=== PATIENT | female | born 1995 | race Caucasian/White ===

== ENCOUNTER 2019-11-28 07:52 | Inpatient (IN) ==
[2019-11-28] MEDS ORDERED: miSOPROStoL 50 MCG TAB PO ONE (09:06)
[2019-11-28] MEDS ORDERED: OXYTOCIN 30 UNITS/500 ML BAG IV PRN (09:06)
--- NOTE | 2019-11-28 09:06 | Obstetrical Progress Note ---
Date of Service November 28, 2019 Assessment & Plan Admission and Anticipated Discharge Date Admission Date: November 28, 2019 Subjective Met pt and spouse H&p reviewed with pt FHR; CAT1 Ctx; Minimal VE; Ft/thick /post EFW: 7-8 timothy Pascal Bedside sono; Vt Discussed and reviewed induction of labor Agreed to starting Cytotec Results & Data ([facility]) Vital Signs (Past 12 Hours) Vital Signs Temp Pulse Resp BP 11/28/19 08:54 100 H 125/82 11/28/19 08:03 37.0 C 100 H 20 141/85 H
[2019-11-28 09:26] LABS: Hematocrit (blood only) 29.9 % (37-47); Hemoglobin 9.9 g/dL (12.0-16.0); Mean Corpuscular Hemoglobin 28.3 pg (25-34); Mean Corpuscular Volume 85.4 fL (80-100); Mean Platelet Volume 10.4 fL (7.4-10.4); Platelet Count 261 K/uL (130-400); RDW Coefficient of Variation 14.2 % (11.5-14.5); RDW Standard Deviation 43.6 fL (36.4-46.3)
[2019-11-28 09:50] LABS: Mean Corpuscular Hgb Conc 33.1 g/dL (32-36)
[2019-11-28] MEDS ORDERED: DINOPROSTONE 10 MG INSERT PV ONE (19:56)
--- NOTE | 2019-11-28 20:18 | Obstetrical Progress Note ---
Date of Service November 28, 2019 Assessment & Plan Admission and Anticipated Discharge Date Admission Date: November 28, 2019 Subjective Pt doing well Induction for postdates Cytotec placed this AM FHR; CAT1 Ctx; Irregular VE' /-3 Cervidil placed in vagina Results & Data ([facility]) Vital Signs (Past 12 Hours) Vital Signs Temp Pulse Resp BP 11/28/19 18:59 36.9 C 82 20 125/70 11/28/19 14:53 37.1 C 80 20 113/75 11/28/19 11:28 37.0 C 78 20 118/73 11/28/19 08:54 100 H 125/82
--- NOTE | 2019-11-29 08:40 | History & Physical Report ---
Date of Service November 29, 2019 Assessment & Plan (1) Elective induction of labor planned: 24 yo at 40.4 wks IOL since yesterday am VSS Afebrile FHR reassuring GBS negative Cervix still unfavorable Desires to eat breakfast Plan US for EW Discussed options with continue with cervical ripening, PG, Esposito bulb, Pitocin in details (2) Post-term , 40-42 weeks of gestation: History of Present Illness Primary Care Provider: NO PCP Patient is a 24 yo at 40.4 days admitted yesterday by Dr Joseph for IOL Received PO Cytotec and vaginal Cervidil. Feels mild cramps, not painful, 07/05 No LOF/VB +FM Her has been uncomplicated except anemia, unable to take iron due to constipation GBS negative Allergies Allergy/AdvReac Type Severity Reaction Status Date / Time cephalexin [From Keflex] Allergy Rash Verified 11/28/19 08:23 Home Medications Home Medications Medication Instructions Recorded Confirmed Type vit-iron fum-folic ac 1 tab PO DAILY 11/28/19 11/28/19 History [ Vitamin] Patient History Medical History Anemia affecting Blocked tear duct, congenital Hx of Lyme disease Scoliosis Social History Preferred Language: Japanese Communication Ability: Effective 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 Beliefs That Will Affect Care: None marital status: Current Living Situation: Spouse Other Information That Helps Us Care for You: No Feels Safe at Home: Yes Safety Concerns: Feels Safe At This Time Smoking Status: Never smoker Hx Alcohol Use: No 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 NO h/o STD's, no h/o HSV/ Chlamydia/ Gonorrhea Review of Systems All systems reviewed & are unremarkable except as noted in HPI & below Physical Exam Constitutional: WD/WN, vitals as above well developed and well nourished Comfortable, desires breakfast Gastrointestinal (Abdomen): Soft, NT, gravid Genitourinary: normal external appearance OB Exam Abdomen: + irregular c ontractions (q2-4 min) Manual OB Exam: + cervical dilation 1 cm, + cervical effacement 50% and + station -2 OB Exam Monitor Tracing: + category I and + normal FHT variability Results & Data Vital Signs (Past 12 Hours) Vital Signs Temp Pulse Resp BP 11/29/19 06:56 36.9 C 20 11/29/19 05:26 36.6 C 78 16 109/59 L 11/29/19 02:38 36.8 C 75 16 126/81 11/28/19 22:17 36.7 C 76 18 138/64
[2019-11-29] MEDS ORDERED: OXYTOCIN 30 UNITS/500 ML BAG IV PRN (11:56)
--- NOTE | 2019-11-29 11:56 | Obstetrical Progress Note ---
Date of Service November 29, 2019 Assessment & Plan Admission and Anticipated Discharge Date Admission Date: November 28, 2019 Subjective Patient is back from US EFW: 3800 gr, 8 lb 8 oz Discussed EFW, US estimation and false rate ( 10% more or less) , increased risk of shoulder dystocia with larger babies She understands and desires trial of vaginal delivery She feels more ctxs, more intense but still 1/10 in pain scale No LOF/VB +FM Cervix unchanged FHR categ I [place]: ctxs q 4-5 min Discussed mahan bulb and low dose Oxytocin Agrees Results & Data ([facility]) Vital Signs (Past 12 Hours) Vital Signs Temp Pulse Resp BP 11/29/19 10:42 74 129/71 11/29/19 10:41 36.9 C 20 11/29/19 06:56 36.9 C 11/29/19 05:26 36.6 C 78 16 109/59 L 11/29/19 02:38 36.8 C 75 16 126/81
[2019-11-29] MEDS: LACTATED RINGER'S 1,000 ML IV PRN ×2 (12:18→18:05)
--- NOTE | 2019-11-29 12:32 | Ultrasound Report ---
ULTRASOUND LIMITED CLINICAL HISTORY: Amniotic fluid assessment. COMPARISON STUDY: No priors. FINDINGS: Real-time, may scale, and color Doppler sonography of the fetus and gravid uterus is perfo rmed. There is a single live gestation with an estimated heart rate of 149 beats per minute. The plac enta is fundal and normal in appearance. The amniotic fluid index measures 12.08 cm. The largest pock et of fluid measures 5.1 cm. Positioning is cephalic. The femoral length measures 8.17 cm, corresponding to and estimated age of 41 weeks 6 days. Abdominal circumference measures 35.08 cm, corresponding to an estimated age of 39 weeks 0 days. The biparietal diameter measures 9.73 cm, corresponding to an estimated age of 39 weeks 6 days. The head circumference measures 33.65 cm, corresponding to an estimated age of 38 weeks 4 days. Estimated weight is 3850 g +/- 577 g. IMPRESSION: 1. There is a single live intrauterine gestation as detailed above. 2. Note that this does not constitute a dedicated anatomic scan. Electronically signed by: Ede Ruiz M.D. 11/29/2019 12:31 PM
[2019-11-29] MEDS ORDERED: ePHEDrine sulfate 50 MG/ML AMP ONE (17:36)
[2019-11-29] MEDS ORDERED: BUPIVACAINE 0.25% 30 ML VIAL ONE (17:36)
--- NOTE | 2019-11-29 17:36 | Obstetrical Progress Note ---
Date of Service November 29, 2019 Assessment & Plan Admission and Anticipated Discharge Date Admission Date: November 28, 2019 Subjective Patient is reevaluated She feels painful, 8/10 VSS Afebrile FHR categ I [place]: ctxs q 1-3 min, pitocin is at 8 miu/min VE; bulb was in vagina, cervix 5 cm/ 60%/ -2 Plan for epidural for pain' Continue to monitor Results & Data ([facility]) Vital Signs (Past 12 Hours) Vital Signs Temp Pulse Resp BP 11/29/19 15:05 86 124/68 11/29/19 14:57 37 C 18 11/29/19 13:59 81 112/64 11/29/19 13:01 85 20 115/62 11/29/19 12:18 76 111/60 11/29/19 10:42 74 129/71 11/29/19 10:41 36.9 C 20 11/29/19 06:56 36.9 C 20
[2019-11-29] MEDS ORDERED: fentaNYL citrate 100 MCG/2 ML VIAL ONE (17:37)
[2019-11-29] MEDS ORDERED: fentaNYL 2MCG/ML ROPIV 1.25MG/ML 100 ML BAG EPI ONE (17:37)
--- NOTE | 2019-11-29 18:15 | Anesthesiology Consultation ---
Date of Service November 29, 2019 Assessment & Plan Chart Review Chart Review: Acceptable Risk for Labor Epidural Consults Requested none History Height/Weight Height: 5 ft 8 in Weight: 91.626 kg Allergies Allergy/AdvReac Type Severity Reaction Status Date / Time cephalexin [From Keflex] Allergy Rash Verified 11/28/19 08:23 Medications Home Medications Medication Instructions Recorded Confirmed Last Taken vit-iron fum-folic ac 1 tab PO DAILY 11/28/19 11/28/19 11/27/19 20:30 [ Vitamin] Active Medications Generic Name Dose Route Start Last Admin Trade Name Freq PRN Reason Stop Dose Admin Lactated Ringer's 1,000 mls @ 125 mls/hr 11/28/19 09:06 11/29/19 18:05 Lr IV 11/30/19 09:05 125 mls/hr .Q8H PRN Administration L&D Protocol Protocol Oxytocin 30 units in 500 mls @ 8 mls/hr 11/29/19 11:56 11/29/19 16:30 Pitocin IV 12/01/19 11:55 0.48 units/hr .Q24H PRN 8 mls/hr Labor Induction/Augmentation Titration Protocol 0.48 UNITS/HR Past Medical History Medical History Anemia affecting Blocked tear duct, congenital Hx of Lyme disease Scoliosis Social History Smoking Status: Never smoker Hx Alcohol Use: No Hx Substance Use: No Physical Exam Vital Signs Last Vital Signs Temp 37 C 11/29/19 14:57 Pulse 87 11/29/19 18:14 Resp 18 11/29/19 14:57 BP 134/67 11/29/19 18:13 Pulse Ox 98 11/29/19 18:14 Testing Laboratory Results 11/28/19 09:13
[2019-11-29] MEDS ORDERED: DiphenhydrAMINE HCL 50 MG/ML VIAL IV PRN (18:17)
[2019-11-29] MEDS ORDERED: fentaNYL 2MCG/ML ROPIV 1.25MG/ML 100 ML BAG EPI PRN (18:17)
[2019-11-29] MEDS ORDERED: NALOXONE HCL 1 MG in SODIUM CHLORIDE 0.9% 1000ML 1,000 ML IV PRN (18:17)
[2019-11-29] MEDS ORDERED: NALBUPHINE HCL INJ 10 MG/ML AMP IV PRN (18:17)
[2019-11-29] MEDS ORDERED: NALOXONE HCL 0.4 MG/1 ML VIAL/CARP IV PRN (18:17)
[2019-11-29] MEDS ORDERED: ePHEDrine sulfate 50 MG/ML AMP IV PRN (18:17)
--- NOTE | 2019-11-29 19:45 | Obstetrical Progress Note ---
Date of Service November 29, 2019 Assessment & Plan Admission and Anticipated Discharge Date Admission Date: November 28, 2019 Subjective Patient is reevaluated She feels comfortable now VSS Afebrile FHR categ I [place]: ctxs q 2-3 min, pitocin is at 10 miu/min VE; cervix 6 cm/ 80%/ -1, AROM'ed clear Continue to monitor Results & Data ([facility]) Vital Signs (Past 12 Hours) Vital Signs Temp Pulse Resp BP Pulse Ox 11/29/19 19:40 112 H 118/60 91 11/29/19 19:39 92 H 99 11/29/19 19:34 98 H 100 11/29/19 19:31 96 H 128/63 11/29/19 19:29 100 H 98 11/29/19 19:24 100 H 99 11/29/19 19:21 100 H 132/59 L 11/29/19 19:19 97 H 99 11/29/19 19:14 91 H 100 11/29/19 19:10 95 H 129/71 11/29/19 19:09 37.5 C 81 18 99 11/29/19 19:04 88 100 11/29/19 19:01 75 128/68 05 18:59 79 99 11/29/19 18:54 78 100 11/29/19 18:51 75 128/68 11/29/19 18:49 82 99 11/29/19 18:44 80 100 11/29/19 18:42 78 124/70 11/29/19 18:39 79 100 11/29/19 18:34 76 98 05 18:31 79 129/67 05 18:30 20 11/29/19 18:29 79 99 05 18:25 18 11/29/19 18:24 78 100 05 18:20 37.1 C 18 11/29/19 18:19 79 129/63 98 05 18:16 83 135/66 0520 18:14 87 98 0520 18:13 86 134/67 05 18:10 83 126/65 /0520 18:09 86 99 05 18:07 86 128/65 05 18:04 81 134/73 100 11/29/19 17:59 86 100 11/29/19 17:54 95 H 99 11/29/19 17:49 96 H 100 11/29/19 15:05 86 124/68 11/29/19 14:57 37 C 18 11/29/19 13:59 81 112/64 11/29/19 13:01 85 20 115/62 11/29/19 12:18 76 111/60 11/29/19 10:42 74 129/71 11/29/19 10:41 36.9 C 20
[2019-11-29] MEDS ORDERED: Nursing to Pharmacy Communication ONE (20:15)
--- NOTE | 2019-11-29 23:40 | Obstetrical Progress Note ---
Date of Service November 29, 2019 Assessment & Plan Admission and Anticipated Discharge Date Admission Date: November 28, 2019 Subjective Late entry from 2134 Patient felt pressure VE; 8/ 90%/+1, coned head FHR categ I Continue to monitor closely Results & Data ([facility]) Vital Signs (Past 12 Hours) Vital Signs Temp Pulse Resp BP Pulse Ox 11/29/19 23:34 131 H 99 11/29/19 23:31 129 H 134/83 11/29/19 23:29 147 H 100 11/29/19 23:24 152 H 98 11/29/19 23:22 37.5 C 127 H 18 137/92 11/29/19 23:19 132 H 98 11/29/19 23:14 112 H 99 11/29/19 23:10 91 H 136/75 11/29/19 23:09 109 H 98 11/29/19 23:04 105 H 98 11/29/19 23:00 78 129/60 11/29/19 22:59 93 H 98 11/29/19 22:54 122 H 98 11/29/19 22:51 85 132/65 11/29/19 22:50 103 H 139/70 11/29/19 22:49 93 H 97 11/29/19 22:44 116 H 98 11/29/19 22:41 87 127/69 11/29/19 22:39 86 96 11/29/19 22:34 98 H 97 11/29/19 22:31 91 H 136/65 11/29/19 22:29 94 H 98 11/29/19 22:24 102 H 98 11/29/19 22:21 93 H 142/80 H 11/29/19 22:19 86 98 11/29/19 22:14 99 H 97 11/29/19 22:11 81 136/65 11/29/19 22:09 82 97 11/29/19 22:05 37.5 C 18 11/29/19 22:04 105 H 97 11/29/19 22:00 107 H 131/80 11/29/19 21:59 98 H 97 11/29/19 21:54 112 H 98 11/29/19 21:50 102 H 120/72 11/29/19 21:49 100 H 98 11/29/19 21:44 101 H 98 06/05/20 21:41 96 H 129/76 06/05/20 21:39 106 H 98 06/05/20 21:34 103 H 98 06/05/20 21:31 112 H 135/76 06/05/20 21:29 92 H 97 06/05/20 21:24 89 98 06/05/20 21:20 87 112/64 06/05/20 21:19 87 97 06/05/20 21:14 85 98 06/05/20 21:10 90 126/73 06/05/20 21:09 95 H 97 06/05/20 21:04 87 98 06/05/20 21:00 96 H 124/73 06/05/20 20:59 96 H 98 06/05/20 20:54 106 H 97 06/05/20 20:51 101 H 132/90 06/05/20 20:49 92 H 98 06/05/20 20:44 98 H 99 06/05/20 20:41 86 126/70 06/05/20 20:39 93 H 98 06/05/20 20:34 107 H 100 06/05/20 20:31 93 H 142/74 H 06/05/20 20:29 93 H 99 06/05/20 20:24 92 H 99 06/05/20 20:20 88 133/72 06/05/20 20:19 96 H 99 06/05/20 20:14 100 H 100 06/05/20 20:10 88 131/68 06/05/20 20:09 91 H 99 06/05/20 20:04 87 98 06/05/20 20:01 98 H 137/73 06/05/20 19:59 98 H 100 06/05/20 19:54 101 H 99 06/05/20 19:51 90 125/64 06/05/20 19:49 92 H 98 06/05/20 19:44 99 H 99 06/05/20 19:42 37.5 C 06/05/20 19:40 112 H 118/60 91 06/05/20 19:39 92 H 99 06/05/20 19:34 98 H 100 06/05/20 19:31 96 H 128/63 06/05/20 19:29 100 H 98 06/05/20 19:24 100 H 99 06/05/20 19:21 100 H 132/59 L 06/05/20 19:19 97 H 99 06/05/20 19:14 91 H 100 06/05/20 19:10 95 H 129/71 06/05/20 19:09 37.5 C 81 18 99 06/05/20 19:04 88 100 06/05/20 19:01 75 128/68 06/05/20 18:59 79 99 06/05/20 18:54 78 100 06/05/20 18:51 75 128/68 06/05/20 18:49 82 99 06/05/20 18:44 80 100 06/05/20 18:42 78 124/70 06/05/20 18:39 79 100 06/05/20 18:34 76 98 06/05/20 18:31 79 129/67 06/05/20 18:30 20 06/05/20 18:29 79 99 06/05/20 18:25 18 /05/20 18:24 78 100 06/05/20 18:20 37.1 C 18 0520 18:19 79 129/63 98 06/05/20 18:16 83 135/66 06/05/20 18:14 87 98 06/05/20 18:13 86 134/67 06/05/20 18:10 83 126/65 06/05/20 18:09 86 99 06/05/20 18:07 86 128/65 06/05/20 18:04 81 134/73 100 06/05/20 17:59 86 100 06/05/20 17:54 95 H 99 /05/20 17:49 96 H 100 06/05/20 15:05 86 124/68 06/05/20 14:57 37 C 18 /05/20 13:59 81 112/64 06/05/20 13:01 85 20 115/62 06/05/20 12:18 76 111/60
--- NOTE | 2019-11-29 23:41 | Obstetrical Progress Note ---
Date of Service November 29, 2019 Assessment & Plan Admission and Anticipated Discharge Date Admission Date: November 28, 2019 Subjective Patient has been feeling pressure and wanted to push She has been pushing for about 15 minutes, brought head to +2, LELA, small caput FHR with early decels with ctxs and good variability and accels in between Continue with pushing and anticipate Results & Data ([facility]) Vital Signs (Past 12 Hours) Vital Signs Temp Pulse Resp BP Pulse Ox 11/29/19 23:34 131 H 99 11/29/19 23:31 129 H 134/83 11/29/19 23:29 147 H 100 11/29/19 23:24 152 H 98 11/29/19 23:22 37.5 C 127 H 18 137/92 11/29/19 23:19 132 H 98 11/29/19 23:14 112 H 99 11/29/19 23:10 91 H 136/75 11/29/19 23:09 109 H 98 11/29/19 23:04 105 H 98 11/29/19 23:00 78 129/60 11/29/19 22:59 93 H 98 11/29/19 22:54 122 H 98 11/29/19 22:51 85 132/65 11/29/19 22:50 103 H 139/70 11/29/19 22:49 93 H 97 11/29/19 22:44 116 H 98 11/29/19 22:41 87 127/69 11/29/19 22:39 86 96 11/29/19 22:34 98 H 97 11/29/19 22:31 91 H 136/65 11/29/19 22:29 94 H 98 11/29/19 22:24 102 H 98 11/29/19 22:21 93 H 142/80 H 11/29/19 22:19 86 98 11/29/19 22:14 99 H 97 11/29/19 22:11 81 136/65 11/29/19 22:09 82 97 11/29/19 22:05 37.5 C 18 11/29/19 22:04 105 H 97 11/29/19 22:00 107 H 131/80 11/29/19 21:59 98 H 97 11/29/19 21:54 112 H 98 11/29/19 21:50 102 H 120/72 06/05/20 21:49 100 H 98 06/05/20 21:44 101 H 98 06/05/20 21:41 96 H 129/76 06/05/20 21:39 106 H 98 06/05/20 21:34 103 H 98 06/05/20 21:31 112 H 135/76 06/05/20 21:29 92 H 97 06/05/20 21:24 89 98 06/05/20 21:20 87 112/64 06/05/20 21:19 87 97 06/05/20 21:14 85 98 06/05/20 21:10 90 126/73 06/05/20 21:09 95 H 97 06/05/20 21:04 87 98 06/05/20 21:00 96 H 124/73 06/05/20 20:59 96 H 98 06/05/20 20:54 106 H 97 06/05/20 20:51 101 H 132/90 06/05/20 20:49 92 H 98 06/05/20 20:44 98 H 99 06/05/20 20:41 86 126/70 06/05/20 20:39 93 H 98 06/05/20 20:34 107 H 100 06/05/20 20:31 93 H 142/74 H 06/05/20 20:29 93 H 99 06/05/20 20:24 92 H 99 06/05/20 20:20 88 133/72 06/05/20 20:19 96 H 99 06/05/20 20:14 100 H 100 06/05/20 20:10 88 131/68 06/05/20 20:09 91 H 99 06/05/20 20:04 87 98 06/05/20 20:01 98 H 137/73 06/05/20 19:59 98 H 100 06/05/20 19:54 101 H 99 06/05/20 19:51 90 125/64 06/05/20 19:49 92 H 98 06/05/20 19:44 99 H 99 06/05/20 19:42 37.5 C 06/05/20 19:40 112 H 118/60 91 06/05/20 19:39 92 H 99 06/05/20 19:34 98 H 100 06/05/20 19:31 96 H 128/63 06/05/20 19:29 100 H 98 06/05/20 19:24 100 H 99 06/05/20 19:21 100 H 132/59 L 06/05/20 19:19 97 H 99 06/05/20 19:14 91 H 100 06/05/20 19:10 95 H 129/71 06/05/20 19:09 37.5 C 81 18 99 06/05/20 19:04 88 100 06/05/20 19:01 75 128/68 06/05/20 18:59 79 99 06/05/20 18:54 78 100 06/05/20 18:51 75 128/68 06/05/20 18:49 82 99 06/05/20 18:44 80 100 06/05/20 18:42 78 124/70 06/05/20 18:39 79 100 06/05/20 18:34 76 98 06/05/20 18:31 79 129/67 06/05/20 18:30 20 06/05/20 18:29 79 99 06/05/20 18:25 18 06/05/20 18:24 78 100 06/05/20 18:20 37.1 C 18 /05/20 18:19 79 129/63 98 06/05/20 18:16 83 135/66 06/05/20 18:14 87 98 06/05/20 18:13 86 134/67 06/05/20 18:10 83 126/65 06/05/20 18:09 86 99 06/05/20 18:07 86 128/65 06/05/20 18:04 81 134/73 100 06/05/20 17:59 86 100 06/05/20 17:54 95 H 99 06/05/20 17:49 96 H 100 06/05/20 15:05 86 124/68 06/05/20 14:57 37 C 18 06/05/20 13:59 81 112/64 06/05/20 13:01 85 20 115/62 06/05/20 12:18 76 111/60
[2019-11-30] MEDS ORDERED: OXYCODONE/ACETAMINOPHEN 5mg/325mg TAB PO PRN (00:26)
[2019-11-30] MEDS ORDERED: BENZOCAINE 20% AER SPR 82.5 GM CAN EXT PRN (00:26)
[2019-11-30] MEDS ORDERED: DIPHTHERIA/TETANUS/PERTUSSIS 0.5 ML SYR/VIAL IM ONE (00:26)
[2019-11-30] MEDS ORDERED: MEASLES, MUMPS & RUBELLA VIRUS VIAL SQ ONE (00:26)
[2019-11-30] MEDS ORDERED: ACETAMINOPHEN 325 MG TAB PO PRN (00:26)
[2019-11-30] MEDS ORDERED: OXYTOCIN 30 UNITS/500 ML BAG IV PRN (00:26)
[2019-11-30] MEDS ORDERED: SUPERCREAM 0.870% 15 GM JAR EXT PRN (00:26)
[2019-11-30] MEDS ORDERED: bisacodyL 10 MG SUPP PR PRN (00:26)
[2019-11-30] MEDS ORDERED: HYDROCORTISONE ACETATE 25 MG SUPP PR PRN (00:26)
[2019-11-30] MEDS ORDERED: IBUPROFEN 600 MG TAB PO PRN (00:26)
--- NOTE | 2019-11-30 00:27 | Anesthesia Procedure Note ---
Date of Service November 30, 2019 Anesthesia Post Epidural Note Vital Signs Vital Signs: Temp Pulse Resp BP Pulse Ox 37.5 C 104 H 18 135/59 L 96 11/29/19 23:22 11/30/19 00:21 11/29/19 23:22 11/30/19 00:21 11/30/19 00:14 Pain Intensity Bilateral Lower Abdomen: Pain Intensity: 5 Notes Mental Status: alert / awake / arousable Nausea / Vomiting: adequately controlled Pain: adequately controlled Airway Patency, RR, SpO2: stable & adequate BP & HR: stable & adequate Hydration State: stable & adequate Neuraxial Anesthesia: was administered and sensory block is resolving Anesthetic Complications: no major complications apparent and Pt Satisfied with anesthetic care Epidural: Removed without complications and With tip intact
--- NOTE | 2019-11-30 01:26 | Delivery Summary ---
DATE OF OPERATION: 11/29/2019 DATE OF DELIVERY: 11/29/2019. TIME OF DELIVERY OF BABY: 2354 hours. DETAILS OF DELIVERY: The patient was found to be fully dilated and desired to push. She pushed for about 35 minutes and delivered the head without difficulty and then turtle sign was noted over the perineum, there was a nuchal cord around the neck x1 which was reduced. I was unable to deliver anterior shoulder with minimal traction. Then the patient's legs were hyperextended with Josue maneuver and and I was able to go into the posterior vagina and deliver the posterior arm, which was the right arm, and then both came without difficulty within less than a minute. The baby was handed off to the mother where mouth and nose were suctioned. Cord was clamped x2 and cut. Baby was handed off to the waiting pediatric team. Then cord blood was obtained. The vagina and perineum were checked for lacerations. There were 2 small second-degree lacerations around the hymen at 4 and 7 o'clock positions and there were first-degree lacerations on the labia bilaterally. The vaginal lacerations were repaired with 2-0 Vicryl in a running locked fashion. Excellent hemostasis was achieved. Then labial lacerations were repaired with 3-0 Vicryl on the SH needle. Placenta was found to be in the vagina, delivered spontaneous as intact and complete. Uterus was explored, found to be empty. Lower segment was cleared of all clots and debris. Fundus was firm. EBL was 200 mL. Mom and baby tolerated the procedure well. Sponge, lap, needle count was correct x2. Baby was a viable male infant, Apgars 7/9, weight is 3989 gr. No complications happened and I was present during whole procedure. I attest to the content of the Intraoperative Record and any orders documented therein. Any exceptions are noted below. MTDD
[2019-11-30] MEDS: IBUPROFEN 200 MG/10 ML UDC PO PRN ×4 (03:15→23:51)
[2019-11-30] MEDS ORDERED: PRENATAL VITAMIN 1 TAB PO SCH (08:00)
[2019-11-30] MEDS: FERROUS SULFATE 325 MG TAB PO SCH (08:05)
[2019-11-30] MEDS: FLINTSTONES COMPLETE CHEWABLE TAB PO SCH (08:05)
[2019-11-30] MEDS: DOCUSATE SODIUM 100 MG CAP PO SCH ×2 (08:05→20:18)
[2019-12-01 07:17] LABS: Hematocrit (blood only) 27.2 % (37-47); Hemoglobin 8.9 g/dL (12.0-16.0); Mean Corpuscular Hemoglobin 28.3 pg (25-34); Mean Corpuscular Hgb Conc 32.7 g/dL (32-36); Mean Corpuscular Volume 86.6 fL (80-100); Mean Platelet Volume 10.3 fL (7.4-10.4); Platelet Count 221 K/uL (130-400); RDW Coefficient of Variation 14.6 % (11.5-14.5); RDW Standard Deviation 45.6 fL (36.4-46.3); Red Blood Count 3.14 M/uL (4.2-5.4); White Blood Count 13.33 K/uL (4.8-10.8)
--- NOTE | 2019-12-01 08:03 | Obstetrical Progress Note ---
Date of Service December 01, 2019 Assessment & Plan (1) Normal course: PPD #2 Pt doing well D/c home with instructions Results & Data Vital Signs (Past 12 Hours) Vital Signs Temp Pulse Resp BP 11/30/19 23:10 36.7 C 76 18 112/68 11/30/19 20:15 36.7 C 83 18 120/72
[2019-12-01] MEDS: IBUPROFEN 200 MG/10 ML UDC PO PRN (08:08)
[2019-12-01] MEDS: FLINTSTONES COMPLETE CHEWABLE TAB PO SCH (08:10)
[2019-12-01] MEDS: FERROUS SULFATE 325 MG TAB PO SCH (08:10)
[2019-12-01] MEDS: DOCUSATE SODIUM 100 MG CAP PO SCH (08:10)
[2019-12-01] MEDS ORDERED: bisacodyL 5 MG TABEC PO SCH (20:00)
== END 2019-12-01 12:40 | disposition home or self-care (01) | DRG 807 ==
LOC: 4S1 07:52 → 4S2 11-30 03:16